=== PATIENT | male | born 1985 ===

== ENCOUNTER 2018-02-17 14:19 | Emergency (ER) | payer SELFPAY ==
[2018-02-17 14:31] VITALS: O2SAT 100
--- NOTE | 2018-02-17 15:25 | C.PDOC ---
History Of Present Illness 32 years old presents to ED for evaluation of 10/10 rectal pain. Patient states "It feels like I have a lump and I feel a lot of pressure and like something is going to pop." Patient describes pain is greater on the right than left. Patient states he was working out at the gym 4 days ago at the gym and felt the pain after he was squatting. Patient states he tried warm baths with epsom salts at least twice a day with no relief but has not tried other treatments. Denies medical problems, constipation, drug use or any other physical complaints. Patient states was seen for similar symptoms few years ago and was told they were hemorrhoid related. Patient also reports occasional drinking. PMD: * No PMD. Time Seen by Provider: 02/17/18 15:03 Chief Complaint (Nursing): GI Problem History Per: Patient History/Exam Limitations: no limitations Onset/Duration Of Symptoms: Days (4) Current Symptoms Are (Timing): Still Present Associated Symptoms: denies: Fever, Chills, Diarrhea, Constipation Alleviating Factors: None Recent travel outside of the [place]: No Past Medical History Reviewed: Historical Data, Nursing Documentation, Vital Signs Vital Signs: Last Vital Signs Temp 98.7 F 02/17/18 14:29 Pulse 87 02/17/18 14:29 Resp 16 02/17/18 14:29 BP 122/77 02/17/18 14:29 Pulse Ox 100 02/17/18 14:29 - Medical History PMH: No Chronic Diseases Surgical History: No Surg Hx Family History: States: Diabetes (Father) - Social History Hx Alcohol Use: Yes Hx Substance Use: No - Immunization History Hx Tetanus Toxoid Vaccination: No Hx Influenza Vaccination: No Hx Pneumococcal Vaccination: No Review Of Systems Constitutional: Negative for: Fever, Chills Gastrointestinal: Positive for: Rectal Pain. Negative for: Nausea, Vomiting, Diarrhea, Constipation Skin: Negative for: Rash Neurological: Negative for: Weakness, Numbness Physical Exam - Physical Exam Appears: Non-toxic, No Acute Distress Skin: Normal Color, Warm, Dry, No Rash Head: Atraumatic Eye(s): bilateral: Normal Inspection, EOMI Oral Mucosa: Moist Throat: Normal, No Erythema, No Exudate, No Drooling, No Mass Neck: Normal ROM, Supple Chest: Symmetrical, No Tenderness Cardiovascular: Rhythm Regular, No Murmur Respiratory: Normal Breath Sounds, No Rales, No Rhonchi, No Wheezing Gastrointestinal/Abdominal: Normal Exam, Bowel Sounds (Active ), Soft, No Tenderness, No Distention, No Guarding, No Rebound Rectal: Hemorrhoids (No External Hemorrhoids. Digital exam internal rectal at 9'oclock position shows positive soft mass palpated/ likely hemorrhoids. ) Extremity: Normal ROM Extremity: Bilateral: Atraumatic, Normal Color And Temperature, Normal ROM Pulses: Left Radial: Normal, Right Radial: Normal Neurological/Psych: Oriented x3, Normal Speech Gait: Steady ED Course And Treatment O2 Sat by Pulse Oximetry: 100 (RA) Pulse Ox Interpretation: Normal Medical Decision Making Medical Decision Making: Plan: * Hydrocortisone * Motrin Progress: Rectal Exam done with Heike Pisano) as a assistant spa manager. Patient instructed that he will go home with these medications for pain. Follow up instructions given and patient agrees to plan. Patient advised to return if symptoms worsen or persist. Patient is stable for discharge. Disposition Counseled Patient/Family Regarding: Diagnosis, Need For Followup, Rx Given - Disposition Referrals: Juan Giron MD [Staff Provider] - Disposition: HOME/ ROUTINE Disposition Time: 16:18 Condition: STABLE Additional Instructions: Mr. Wilson, thank you for letting us take care of you today. Return to the ER if your symptoms worsen. Take the medication listed below as prescribed. Do not do any weight lifting until your hemorrhoids have improved. Please call the GI physician--Dr. Giron--at the phone number listed below. Continue to do the Sitz Baths 3 times a day. Prescriptions: Hydrocortisone [Anusol-HC] 1 supp SD TID #30 sup Ibuprofen [Motrin Tab] 1 tab PO TID PRN #30 tab PRN Reason: Pain, Moderate (4-7) Instructions: Hemorrhoids Forms: [employer] (Djiboutian) Print Language: TUNISIAN - POA Present On Arrival: None - Clinical Impression Clinical Impression: Hemorrhoids - Scribe Statement The provider has reviewed the documentation as recorded by the [facility] All medical record entries made by the Bernardoibstefani were at my direction and personally dictated by me. I have reviewed the chart and agree that the record accurately reflects my personal performance of the history, physical exam, medical decision making, and the department course for this patient. I have also personally directed, reviewed, and agree with the discharge instructions and disposition.
[2018-02-17 16:42] VITALS: BP 113/72; PULSE 52; RESP 18; TEMP 98.5
== END 2018-02-17 16:42 | disposition home or self-care (01) ==
LOC: C.ER 14:19
DX: K64.9 Unspecified hemorrhoids (principal)

== ENCOUNTER 2018-02-19 01:58 | Inpatient (IN) | payer SELFPAY ==
[2018-02-19] MEDS ORDERED: Sodium Chloride 0.9% 1,000 ML IV ONE (02:27)
[2018-02-19 02:36] LABS: BASO % 0.3 % (0.0-2.0); EOS # 0.1 K/uL (0.0-0.7); EOS % 0.5 % (0.0-4.0); HEMOGLOBIN 12.6 g/dL (12.0-18.0); LYMPH # 0.9 K/uL (1.0-4.3); LYMPH % 5.7 % (20.0-40.0); MEAN CELL VOLUME 84.5 fL (80.0-94.0); MEAN CORPUSCULAR HEMOGLOBIN 28.6 pg (27.0-31.0); MEAN CORPUSCULAR HGB CONC 33.9 g/dL (33.0-37.0); MEAN PLATELET VOLUME 8.9 fL (7.2-11.7); MONO # 1.3 K/uL (0.0-0.8); MONO % 8.1 % (0.0-10.0); NEUT # 13.3 K/uL (1.8-7.0); NEUT % 85.4 % (50.0-75.0); NRBC % 0.1 % (0.0-2.0); PLATELET COUNT 189 K/uL (130-400); RED CELL DISTRIBUTION WIDTH 12.6 % (11.5-14.5); WHITE BLOOD COUNT 15.5 K/uL (4.8-10.8)
[2018-02-19] MEDS ORDERED: Morphine 4 MG/ML VIAL ONE ×2 (02:38→07:38)
[2018-02-19 02:48] LABS: ALB/GLOB RATIO 1.4 (1.0-2.1); ALBUMIN 4.2 g/dL (3.5-5.0); ALT/SGPT 79 U/L (21-72); AST/SGOT 67 U/L (17-59); BLOOD UREA NITROGEN 17 mg/dL (9-20); CALCIUM 8.8 mg/dl (8.6-10.4); GFR NON-AFRICAN AMERICAN > 60
--- NOTE | 2018-02-19 02:51 | C.PDOC ---
History Of Present Illness Patient presents to ED c/o severe rectal pain that started approx 5 days ago. He was seen in out ED on 02/17 and diagnosed with internal hemorrhoid, given anusol and motrin. He states the pain has worsened and he now feels a "bump" in the area. He denies fever, abdominal pain, vomiting, diarrhea, rectal bleeding, injuries. Time Seen by Provider: 02/19/18 02:11 Chief Complaint (Nursing): Medical Clearance History Per: Patient History/Exam Limitations: no limitations Onset/Duration Of Symptoms: Days (5) Current Symptoms Are (Timing): Still Present Severity: Severe Past Medical History Reviewed: Historical Data, Nursing Documentation, Vital Signs Vital Signs: Last Vital Signs Temp 98.7 F 02/19/18 02:05 Pulse 88 02/19/18 02:05 Resp 18 02/19/18 02:05 BP 119/74 02/19/18 02:05 Pulse Ox 98 02/19/18 02:05 - Medical History PMH: No Chronic Diseases Family History: States: Diabetes (Father) - Social History Hx Alcohol Use: Yes Hx Substance Use: No - Immunization History Hx Tetanus Toxoid Vaccination: No Hx Influenza Vaccination: No Hx Pneumococcal Vaccination: No Review Of Systems Constitutional: Negative for: Fever, Chills Cardiovascular: Negative for: Chest Pain, Palpitations Respiratory: Negative for: Cough, Shortness of Breath Gastrointestinal: Positive for: Rectal Pain. Negative for: Nausea, Vomiting, Abdominal Pain, Diarrhea, Melena Genitourinary: Negative for: Dysuria Skin: Negative for: Rash Physical Exam - Physical Exam Appears: Well, Non-toxic, In Acute Distress (in moderate pain) Skin: Normal Color, Warm, Dry Oral Mucosa: Moist Cardiovascular: Rhythm Regular Respiratory: Normal Breath Sounds, No Rales, No Rhonchi, No Wheezing Gastrointestinal/Abdominal: Normal Exam, Bowel Sounds, Soft, No Tenderness Rectal: Rectal Tone (normal ), No Blood Streaked Stool, No Hemorrhoids, Tenderness (and severe pain with digital exam), Other (at 9 O'clock, approx 3cm area of swelling that is exquisitely tender to palpation, no overlying erythema, no obvious hemorrhoids) Neurological/Psych: Oriented x3 ED Course And Treatment - Laboratory Results Result Diagrams: 02/19/18 02:34 02/19/18 02:34 ECG: Interpreted By Me, Viewed By Me (sinus bradycardia 57 bpm, normal axis, no acute ST/T wave changes) ECG Interpretation: No Acute Changes O2 Sat by Pulse Oximetry: 98 (RA) Pulse Ox Interpretation: Normal - CT Scan/US CT PELVIS Other Rad Studies (CT/US): Read By Radiologist, Radiology Report Reviewed CT/US Interpretation: Name:CARL MACDONALD Exam Date:Feb 19, 2018 3:25:19 AM EST. Modality Type:CT\\SR. Description:CT - PELVIS. Gender:M Laterality:Not applicable. :87 Referring Physician:MALACHI BLANC MD. CT scan of the pelvis with contrast. Indication: Rectal pain. Technique: Axial CT scan images with intravenous contrast. Reformatted coronal and sagittal images. Findings: 4.3x2.7 cm right perianal abscess formation. Prominent surrounding inflammatory fat stranding suggestive of cellulitis. No mass lesion is noted. Impression: Right perianal intersphincteric abscess formation. . Electronically signed on Feb 19, 2018 3:57:37 AM EST by: Lane Phoenix M.D., Certified by ABR, MSK, Neuroradiology. Progress Note: Blood work and CT scan of pelvis with IV contrast ordered and reviewed. Patient given IV NS bolus, IV morphine, IV Ciprofloxacin and IV Flagyl. 4:05am- Surgeon cost control supervisor paged. 4:35am- Surgeon cost control supervisor paged again. 4:45am- Spoke with surgery resident, will come down and evaluate patient. Disposition - Disposition
[2018-02-19] MEDS ORDERED: Iodixanol 320 MG/ML 100 ML BOTTLE IV ONE (03:00)
[2018-02-19 03:50] LABS: BANDS 1 % (0-2); BASOPHIL 1 % (0-2); LYMPHOCYTE 4 % (20-40); MONOCYTE 6 % (0-10); NEUTROPHIL 86 % (50-75); PLATELET ESTIMATE NORMAL (NORMAL); REACTIVE LYMPHOCYTES 2 % (0-0); TOTAL CELLS COUNTED 100
[2018-02-19 03:51] LABS: LARGE PLATELETS PRESENT
[2018-02-19] MEDS ORDERED: metroNIDAZOLE IV 500 mg/100 ml 500 MG/100 ML BAG IV STA (03:59)
[2018-02-19] MEDS ORDERED: Ciprofloxacin 400mg/200ml D5W 400 MG/200 ML BAG IV STA (03:59)
[2018-02-19] MEDS ORDERED: metroNIDAZOLE IV 500 mg/100 ml 500 MG/100 ML BAG ONE (04:05)
[2018-02-19] MEDS ORDERED: Ciprofloxacin 400mg/200ml D5W 400 MG/200 ML BAG IVPB ONE (04:06)
--- NOTE | 2018-02-19 05:37 | CP.PCM.HP ---
<Carly Solis - Last Filed: 02/19/18 05:20> History of Present Illness - History of Present Illness History of Present Illness: Surgery H&P: Dr. Ferrer Pt is a 32M with no PMHx or PSHx who presents to [facility] ER with complaints of rectal pain. Pt states he came to the ER on Monday for similar pain and was told he had an internal hemorrhoid for which he was given cream/sitz baths. However, the pain did not improve and pt states he now feels a lump on his Right buttock. He denies having anything similar in the past and denies any discharge from the area. In the ER, pt had a CT pelvis which shows 4.3 x 2.7 R perianal abscess. Surgery called to evaluate. Pt is currently resting on his stomach in the ER because of the pain. He states he has been unable to sit on his R side. Pt states he has been having bowel movements and denies any bleeding per rectum. He denies any fevers/chills, nausea/vomiting, chest pain or SOB. Pt denies rectal intercourse. PMHx: denies PSHx: denies SocialHx: denies tobacco/drug use, social EtOH ALL: NKDA Present on Admission - Present on Admission Any Indicators Present on Admission: No Review of Systems - Review of Systems All systems: reviewed and no additional remarkable complaints except (as per HPI) Past Patient History - Infectious Disease Hx of Infectious Diseases: None - Past Social History Smoking Status: Never Smoked Alcohol: Social Drugs: Denies - PSYCHIATRIC Hx Substance Use: No - SURGICAL HISTORY Hx Surgeries: No - ANESTHESIA Hx Anesthesia: No Meds Allergies/Adverse Reactions: Allergies Allergy/AdvReac Type Severity Reaction Status Date / Time No Known Allergies Allergy Verified 02/19/18 02:04 Physical Exam - Constitutional Appears: Well, No Acute Distress - Head Exam Head Exam: ATRAUMATIC, NORMOCEPHALIC - Eye Exam Eye Exam: Normal appearance - ENT Exam ENT Exam: Mucous Membranes Moist - Respiratory Exam Respiratory Exam: NORMAL BREATHING PATTERN - Cardiovascular Exam Cardiovascular Exam: RRR - GI/Abdominal Exam GI & Abdominal Exam: Soft. absent: Distended, Tenderness - Rectal Exam Additional comments: 4x3cm fluctuant mass noted on R buttock at 9'0 clock in lithotomy position, transrectal fullness also appreciated however, pt very tender to palpation and difficult to complete exam. No internal/external hemorrhoids appreciated - Neurological Exam Neurological exam: Alert, Oriented x3 - Skin Skin Exam: Dry, Warm Results - Vital Signs Recent Vital Signs: Last Vital Signs Temp 98.6 F 02/19/18 05:08 Pulse 64 02/19/18 05:08 Resp 18 02/19/18 05:08 BP 142/91 H 02/19/18 05:08 Pulse Ox 100 02/19/18 05:08 - Labs Result Diagrams: 02/19/18 02:34 02/19/18 02:34 Labs: Laboratory Results - last 24 hr 02/19/18 02/19/18 02:34 02:34 WBC 15.5 H RBC 4.40 Hgb 12.6 Hct 37.2 MCV 84.5 MCH 28.6 MCHC 33.9 RDW 12.6 Plt Count 189 MPV 8.9 Neut % (Auto) 85.4 H Lymph % (Auto) 5.7 L [place] % (Auto) 8.1 Eos % (Auto) 0.5 Baso % (Auto) 0.3 Neut # (Auto) 13.3 H Lymph # (Auto) 0.9 L [place] # (Auto) 1.3 H Eos # (Auto) 0.1 Baso # (Auto) 0.0 Neutrophils % (Manual) 86 H Band Neutrophils % 1 Lymphocytes % (Manual) 4 L Reactive Lymphs % 2 H Monocytes % (Manual) 6 Basophils % (Manual) 1 Platelet Estimate Normal Large Platelets Present Sodium 139 Potassium 4.3 Chloride 102 Carbon Dioxide 28 Anion Gap 13 BUN 17 Creatinine 1.2 Est GFR ( Amer) > 60 Est GFR (Non-Af Amer) > 60 Random Glucose 124 H Calcium 8.8 Total Bilirubin 0.9 AST 67 H ALT 79 H Alkaline Phosphatase 96 Total Protein 7.2 Albumin 4.2 Globulin 3.0 Albumin/Globulin Ratio 1.4 - Imaging and Cardiology CT scan - abdomen Status: Image reviewed by me, Report reviewed by me Assessment & Plan - Assessment and Plan (Free Text) Assessment: 32M with R sided isaiah-rectal abscess Plan: - OR for exam under anesthesia and I&D of isaiah-rectal abscess - IV ABX - NPO, IVF - d/w Dr. Ferrer <Radames Ferrer - Last Filed: 02/19/18 06:55> Results - Vital Signs Recent Vital Signs: Last Vital Signs Temp 98.6 F 02/19/18 05:08 Pulse 64 02/19/18 05:08 Resp 18 02/19/18 05:08 BP 142/91 H 02/19/18 05:08 Pulse Ox 98 02/19/18 05:54 - Labs Result Diagrams: 02/19/18 02:34 02/19/18 02:34 Labs: Laboratory Results - last 24 hr 02/19/18 02/19/18 02/19/18 02:34 02:34 05:41 WBC 15.5 H RBC 4.40 Hgb 12.6 Hct 37.2 MCV 84.5 MCH 28.6 MCHC 33.9 RDW 12.6 Plt Count 189 MPV 8.9 Neut % (Auto) 85.4 H Lymph % (Auto) 5.7 L [place] % (Auto) 8.1 Eos % (Auto) 0.5 Baso % (Auto) 0.3 Neut # (Auto) 13.3 H Lymph # (Auto) 0.9 L [place] # (Auto) 1.3 H Eos # (Auto) 0.1 Baso # (Auto) 0.0 Neutrophils % (Manual) 86 H Band Neutrophils % 1 Lymphocytes % (Manual) 4 L Reactive Lymphs % 2 H Monocytes % (Manual) 6 Basophils % (Manual) 1 Platelet Estimate Normal Large Platelets Present PT 14.9 H INR 1.4 APTT 30 Sodium 139 Potassium 4.3 Chloride 102 Carbon Dioxide 28 Anion Gap 13 BUN 17 Creatinine 1.2 Est GFR ( Amer) > 60 Est GFR (Non-Af Amer) > 60 Random Glucose 124 H Calcium 8.8 Total Bilirubin 0.9 AST 67 H ALT 79 H Alkaline Phosphatase 96 Total Protein 7.2 Albumin 4.2 Globulin 3.0 Albumin/Globulin Ratio 1.4 Blood Type Antibody Screen 02/19/18 05:55 WBC RBC Hgb Hct MCV MCH MCHC RDW Plt Count MPV Neut % (Auto) Lymph % (Auto) [place] % (Auto) Eos % (Auto) Baso % (Auto) Neut # (Auto) Lymph # (Auto) [place] # (Auto) Eos # (Auto) Baso # (Auto) Neutrophils % (Manual) Band Neutrophils % Lymphocytes % (Manual) Reactive Lymphs % Monocytes % (Manual) Basophils % (Manual) Platelet Estimate Large Platelets PT INR APTT Sodium Potassium Chloride Carbon Dioxide Anion Gap BUN Creatinine Est GFR ( Amer) Est GFR (Non-Af Amer) Random Glucose Calcium Total Bilirubin AST ALT Alkaline Phosphatase Total Protein Albumin Globulin Albumin/Globulin Ratio Blood Type A POSITIVE Antibody Screen Negative Assessment & Plan - Assessment and Plan (Free Text) Plan: I personally saw and examined the patient independent of resident staff and agree with above assessment and plan. Personally reviewed CT imaging and report. 32 male isaiah-rectal abscess with elevated WBC. To OR for examination under anesthesia, incision and drainage, possible seton placement. Risks and benefits discussed with patient at bedside. Consent signed.
[2018-02-19] MEDS ORDERED: Morphine 4 MG/ML VIAL IVP PRN (05:49)
[2018-02-19 05:52] LABS: INR 1.4; PROTHROMBIN TIME 14.9 SECONDS (9.7-12.2)
[2018-02-19] MEDS ORDERED: Piperacillin/Tazobact 3.375 GM in Sodium Chloride 100 ML IVPB SCH (06:00)
[2018-02-19] MEDS ORDERED: Lactated Ringer's 1,000 ML IV SCH (06:00)
[2018-02-19] MEDS ORDERED: Propofol 10 mg/ml Inj (20 ML) ONE (06:45)
[2018-02-19] MEDS ORDERED: Midazolam 2 MG/2 ML VIAL ONE (06:45)
[2018-02-19] MEDS ORDERED: Bupivacaine 0.25% 20 ML INJ IJ ONE (07:27)
[2018-02-19] MEDS ORDERED: Lidocaine/Epinephrine 1% 1:100000 10 ML IJ ONE (07:27)
[2018-02-19] MEDS ORDERED: ePHEDrine 50 mg/ml Inj ONE (07:41)
[2018-02-19] MEDS ORDERED: Lactated Ringer's 1,000 ML IV ONE (08:05)
--- NOTE | 2018-02-19 08:15 | PCM.SURG1 ---
Surgeon's Initial Post Op Note - Surgeon's Notes Surgeon: Dr. Radames Ferrer Life Enrichment Director: Kasey Soliman, PGY2 Type of Anesthesia: General Endo Pre-Operative Diagnosis: isaiah-rectal abscess Operative Findings: intersphincteric abscess of the rectum Post-Operative Diagnosis: same Operation Performed: examination under anesthesia, incision and drainage of perirectal abscess Specimen/Specimens Removed: culture, isaiah-rectal tissue Estimated Blood Loss: EBL {In ML}: 10 Date of Surgery/Procedure: 02/19/18 Time of Surgery/Procedure: 07:00
[2018-02-19] MEDS ORDERED: HYDROmorphone 0.5 mg/0.5 ml ISec IVP PRN (08:30)
--- NOTE | 2018-02-19 10:19 | CT ---
Date of service: 02/19/2018 CT abdomen with IV contrast Indication: rectal pain, r/o right sided rectal abscess Technique: Contiguous axial images of the abdomen. Coronal and Sagittal reformats generated and reviewed. Contrast: 100 mL Visipaque [address] exam was performed using 1 or more of the following dose reduction techniques: Automated exposure control, adjustment of the MAA and/or kV according to patient size, and/or use of iterative reconstruction technique. Radiation dose: Total exam DLP = 1299.25 MGy-cm. Comparison: None available Findings: The included bowel loops appear within normal limits of caliber without evidence of intestinal obstruction. There is no definite free air. Perirectal inflammatory stranding. Sub cm perirectal lymph nodes, nonspecific. The prostate gland measures approximately 3.0 x 3.5 cm. The urinary bladder appears unremarkable. Small fat containing bilateral inguinal hernias. 1.8 x 2.7 x 3.2 cm (transverse by AP by cc dimensions) right perianal abscess. Adjacent inflammatory stranding appears consistent with cellulitis. No acute osseous abnormality is detected. Impression: 1.8 x 2.7 x 3.2 cm right perianal abscess with adjacent inflammatory stranding which appears consistent with cellulitis. Perirectal inflammatory stranding is also noted with sub cm perirectal lymph nodes. Preliminary impression was provided by [employer].
[2018-02-19] MEDS: Docusate-Senna 50 mg-8.6 mg Tab PO SCH ×2 (11:09→17:52)
[2018-02-19] MEDS: metroNIDAZOLE IV 500 mg/100 ml 500 MG/100 ML BAG IVPB SCH ×2 (11:41→21:07)
[2018-02-19] MEDS: Ciprofloxacin 400mg/200ml D5W 400 MG/200 ML BAG IVPB SCH (14:47)
[2018-02-19 15:38] VITALS: RESP 20
[2018-02-20] MEDS: Ciprofloxacin 400mg/200ml D5W 400 MG/200 ML BAG IVPB SCH (02:35)
[2018-02-20] MEDS: metroNIDAZOLE IV 500 mg/100 ml 500 MG/100 ML BAG IVPB SCH ×2 (04:00→11:44)
[2018-02-20] MEDS ORDERED: Oxycodone/Acetaminophen 5/325 mg Tab PO PRN (07:41)
[2018-02-20 07:48] LABS: BASO % 0.2 % (0.0-2.0); EOS % 0.5 % (0.0-4.0); HEMOGLOBIN 12.3 g/dL (12.0-18.0); LYMPH # 1.5 K/uL (1.0-4.3); LYMPH % 13.8 % (20.0-40.0); MEAN CELL VOLUME 84.4 fL (80.0-94.0); MEAN CORPUSCULAR HEMOGLOBIN 28.7 pg (27.0-31.0); MEAN PLATELET VOLUME 8.7 fL (7.2-11.7); MONO % 9.5 % (0.0-10.0); NEUT # 8.1 K/uL (1.8-7.0); RBC 4.3 Mil/uL (4.40-5.90); RED CELL DISTRIBUTION WIDTH 12.6 % (11.5-14.5); WHITE BLOOD COUNT 10.6 K/uL (4.8-10.8)
[2018-02-20 08:18] LABS: BLOOD UREA NITROGEN 10 mg/dL (9-20); CALCIUM 8.3 mg/dl (8.6-10.4); GFR NON-AFRICAN AMERICAN > 60
[2018-02-20] MEDS: Enoxaparin 40 mg Syringe SC SCH (10:30)
[2018-02-20] MEDS: Docusate-Senna 50 mg-8.6 mg Tab PO SCH ×2 (10:30→17:54)
--- NOTE | 2018-02-20 11:56 | CP.PCM.PN ---
Subjective - Date & Time of Evaluation Date of Evaluation: 02/20/18 Time of Evaluation: 06:30 - Subjective Subjective: General surgery progress note for Dr. Ferrer Pt seen and examined at bedside this AM. No acute events overnight. Patient reports pain but it is currently well managed on current regimen. Packing changed performed at bedside with no complications. Objective - Vital Signs/Intake and Output Vital Signs (last 24 hours): Temp Pulse Resp BP Pulse Ox 98.2 F 72 20 139/72 95 02/20/18 07:15 02/20/18 07:15 02/20/18 07:15 02/20/18 07:15 02/20/18 07:15 Intake and Output: 02/20/18 02/20/18 06:59 18:59 Output Total 650 Balance -650 - Medications Medications: Current Medications Acetaminophen (Tylenol 325mg Tab) 650 mg PO Q6 PRN PRN Reason: Fever >100.4 F Last Admin: 02/20/18 11:45 Dose: 650 mg Ciprofloxacin (Cipro) 750 mg PO Q12H RYANN; Protocol Enoxaparin Sodium (Lovenox) 40 mg SC DAILY [facility] Last Admin: 02/20/18 10:30 Dose: 40 mg Hydromorphone HCl (Dilaudid) 0.5 mg IVP Q15M PRN PRN Reason: Pain, severe (8-10) Last Admin: 02/19/18 08:58 Dose: 0.5 mg Magnesium Sulfate/Dextrose (Magnesium Sulfate 1 Gm/100 Ml D5w) 1 gm in 100 mls @ 300 mls/hr IVPB Q30M RYANN Stop: 02/20/18 12:49 Influenza Virus Vaccine (Fluzone Quad [id number]) 60 mcg IM .ONCE ONE Stop: 02/21/18 10:01 Ketorolac Tromethamine (Toradol) 30 mg IVP Q6H PRN PRN Reason: Pain, moderate (4-7) Last Admin: 02/20/18 07:17 Dose: 30 mg Ketorolac Tromethamine (Toradol) 10 mg PO Q6 PRN PRN Reason: Pain, moderate (4-7) Stop: 02/23/18 11:48 Metronidazole (Flagyl) 500 mg PO Q6H RYANN; Protocol Ondansetron HCl (Zofran Inj) 4 mg IVP DAILY@ONCE PRN PRN Reason: Nausea/Vomiting Oxycodone/Acetaminophen (Percocet 5/325 Mg Tab) 1 tab PO Q4H PRN PRN Reason: Pain, severe (8-10) Stop: 02/23/18 07:42 Senna/Docusate Sodium (Senokot S 50 Mg-8.6 Mg) 2 tab PO BID RYANN Last Admin: 02/20/18 10:30 Dose: 2 tab - Labs Labs: 02/20/18 07:41 02/20/18 07:41 PT 14.9 SECONDS (9.7-12.2) H 02/19/18 05:41 INR 1.4 02/19/18 05:41 APTT 30 SECONDS (21-34) 02/19/18 05:41 - Constitutional Appears: Well, Non-toxic, No Acute Distress - Head Exam Head Exam: ATRAUMATIC, NORMOCEPHALIC - Eye Exam Eye Exam: Normal appearance. absent: Conjunctival injection, Scleral icterus - ENT Exam ENT Exam: Mucous Membranes Moist, Normal Oropharynx - Respiratory Exam Respiratory Exam: NORMAL BREATHING PATTERN. absent: Accessory Muscle Use, Respiratory Distress - Cardiovascular Exam Cardiovascular Exam: RRR - GI/Abdominal Exam GI & Abdominal Exam: Soft. absent: Distended - Rectal Exam Additional comments: incision in right lateral perirectum with gauze packing with sero-sanguinous saturation, minimal surrounding induration, mild erythema, no active bleeding or purulent drainage - Extremities Exam Extremities Exam: absent: Calf Tenderness, Pedal Edema, Tenderness - Neurological Exam Neurological Exam: Alert, Awake, Oriented x3 - Psychiatric Exam Psychiatric exam: Normal Affect, Normal Mood - Skin Skin Exam: Dry, Normal Color, Warm Assessment and Plan - Assessment and Plan (Free Text) Assessment: 32M POD#1 s/p perirectal abscess drainage Plan: BID wet-to-dry packing changes PO antibiotics PRN pain medication--avoid narcotics as possible Continue scheduled stool softeners Encourage ambulation F/U cultures and pathology DVT ppx Patient will need assistance and education for daily BID wet-to-dry packing changes prior to DC. Will attempt to educate family to assist. Discussed with Dr. Nabil Soliman, PGY2
[2018-02-20] MEDS: Magnesium Sulfate 1 gm in D5W 1 GM/100 ML BAG IVPB SCH ×2 (12:28→13:25)
--- NOTE | 2018-02-20 17:14 | CARD ---
APPROVED REPORT Date of service: 02/19/2018 EKG Measurement Heart [id number] <Conclusion> Sinus bradycardia Otherwise normal ECG
[2018-02-21 07:29] LABS: BASO % 0.3 % (0.0-2.0); EOS # 0.2 K/uL (0.0-0.7); EOS % 2.5 % (0.0-4.0); HEMOGLOBIN 12.5 g/dL (12.0-18.0); LYMPH # 1.4 K/uL (1.0-4.3); LYMPH % 19.4 % (20.0-40.0); MEAN CELL VOLUME 84.1 fL (80.0-94.0); MEAN CORPUSCULAR HEMOGLOBIN 28.8 pg (27.0-31.0); MEAN CORPUSCULAR HGB CONC 34.3 g/dL (33.0-37.0); MEAN PLATELET VOLUME 8.8 fL (7.2-11.7); MONO # 0.8 K/uL (0.0-0.8); MONO % 10.4 % (0.0-10.0); NEUT % 67.4 % (50.0-75.0); NRBC % 0.1 % (0.0-2.0); RBC 4.36 Mil/uL (4.40-5.90); RED CELL DISTRIBUTION WIDTH 12.8 % (11.5-14.5); WHITE BLOOD COUNT 7.4 K/uL (4.8-10.8)
[2018-02-21 07:42] LABS: BLOOD UREA NITROGEN 12 mg/dL (9-20); CALCIUM 8.9 mg/dl (8.6-10.4); GFR NON-AFRICAN AMERICAN > 60
[2018-02-21 09:16] VITALS: BP 109/63; PULSE 72; TEMP 97.7; O2SAT 96
--- NOTE | 2018-02-21 09:24 | PCM.OP ---
Operative Report - Operative Report Date of Surgery/Procedure: 02/19/18 Time of Surgery/Procedure: 07:00 Surgeon: Radames Ferrer MD Shoe Sticks Repairer: Kasey Soliman DO PGY 2 resident Anesthesia/Sedation: General endotracheal; 1% lidocaine with epinephrine + 25% marcarine local mixture 30cc Pre-Operative Diagnosis: Calista-rectal abscess. Obesity. BMI 32 Post-Operative Diagnosis: Calista-rectal abscess. Obesity. BMI 32 Indication for Surgery: The patient is a 32 year old male who presented to ED with several days perirectal pain and fevers. CT evidence of perirectal abscess, leukocytosis and inability to perform appropriate rectal exam due to significant pain. Details of HPI as documented in patients chart. All potential risks, benefits, and complications of Examination under anesthesia, Incision and drainage of perirectal abscess, possible seton placement, were discussed with the patient, including but not limited to, bleeding, infection, urinary retention, incontinence, need for further procedures, and informed consent was obtained prior to the operation. Operative Findings: Transphincteric calista-rectal abscess without evidence of rectal connection or external fistula tract. 20cc of purulent fluid drained. Soft tissue inflammation. No further perineal findings. Procedure/Operation Description: PROCEDURE PERFORMED: Perineal Examination under anesthesia,. Incision and drainage (I&D) of perirectal abscess with pulse lavage. DETAILS OF OPERATION: Patient was taken to operating room and placed supine on the operating room table. Arms placed in neutral position on arms boards. SCD boots were placed for DVT prophylaxis. Following successful general endotracheal anesthesia, laguna catheter inserted to decompress urinary bladder, the patients legs were placed on padded stirrup foot rests, placed in lithotomy position, taking care to pad pressure points and place in neutral position avoiding any undo stretching of the joints. Upper body warmer placed. The perineum was prepped and draped in sterile fashion. A safety strap was then loosely placed across Lower abdomen. Patient receiving ciprofloxacin and flagyl IV antibiotics started in ED. A time out was performed prior to incision. The patients legs where raised in lithotomy position to access the abscess area, which was in the right gluteal side at the 9 O'cloack position with obvious fullness but not external opening or drainage. A digital rectal exam was performed and grossly normal without evidence of deeper involvement. Gloves were changed and the abscess was incised with a cruciate incision. The skin edges of the cruciate incision and all necrotic tissue was sharply removed. Skin sent off to pathology The cavity was digitally explored and purulent fluid evacuated on the right side. Cavity was found to cross over posterior to the left calista-rectal space, No communication to any deeper structures or to the colorectal area. Small septae were released with hemostat. The cavity was irrigated with pulsed saline lavage and then was packed with packing gauze and dressed. 30cc of local anesthesia was injected around the incision and perineum for adequate pain control. Estimated blood loss was minimal. The patient tolerated the procedure well and was sent for recovery in good condition. I was present for the entirety of the operation. Sponge needle, and instrument counts were correct. Estimated Blood Loss: 15mL Complications: none Specimen: perineal skin x2 Discharge & Condition: above
[2018-02-21] MEDS: Enoxaparin 40 mg Syringe SC SCH (09:57)
[2018-02-21] MEDS: Docusate-Senna 50 mg-8.6 mg Tab PO SCH (09:58)
[2018-02-21] MEDS ORDERED: Influenza Vaccine 60 MCG/0.5 ML SYR (3 yr & up) IM ONE (10:00)
--- NOTE | 2018-02-21 12:47 | CP.PCM.DIS ---
Provider - Provider Date of Admission: 02/19/18 05:20 Attending physician: Radames Ferrer MD Time Spent in preparation of Discharge (in minutes): 45 Diagnosis - Discharge Diagnosis (1) Anorectal abscess Status: Acute Priority: High (2) Post-operative pain Status: Acute Priority: High Hospital Course - Lab Results Lab Results: Micro Results 02/19/18 09:04 Other: Please Indicate Gram Stain - Final 02/19/18 09:04 Other: Please Indicate Wound Culture - Final Escherichia Coli Most Recent Lab Values WBC 7.4 K/uL (4.8-10.8) 02/21/18 07:18 RBC 4.36 Mil/uL (4.40-5.90) L 02/21/18 07:18 Hgb 12.5 g/dL (12.0-18.0) 02/21/18 07:18 Hct 36.6 % (35.0-51.0) 02/21/18 07:18 MCV 84.1 fL (80.0-94.0) 02/21/18 07:18 MCH 28.8 pg (27.0-31.0) 02/21/18 07:18 MCHC 34.3 g/dL (33.0-37.0) 02/21/18 07:18 RDW 12.8 % (11.5-14.5) 02/21/18 07:18 Plt Count 210 K/uL (130-400) 02/21/18 07:18 MPV 8.8 fL (7.2-11.7) 02/21/18 07:18 Neut % (Auto) 67.4 % (50.0-75.0) 02/21/18 07:18 Lymph % (Auto) 19.4 % (20.0-40.0) L 02/21/18 07:18 [place] % (Auto) 10.4 % (0.0-10.0) H 02/21/18 07:18 Eos % (Auto) 2.5 % (0.0-4.0) 02/21/18 07:18 Baso % (Auto) 0.3 % (0.0-2.0) 02/21/18 07:18 Neut # (Auto) 5.0 K/uL (1.8-7.0) 02/21/18 07:18 Lymph # (Auto) 1.4 K/uL (1.0-4.3) 02/21/18 07:18 [place] # (Auto) 0.8 K/uL (0.0-0.8) 02/21/18 07:18 Eos # (Auto) 0.2 K/uL (0.0-0.7) 02/21/18 07:18 Baso # (Auto) 0.0 K/uL (0.0-0.2) 02/21/18 07:18 Neutrophils % (Manual) 86 % (50-75) H 02/19/18 02:34 Band Neutrophils % 1 % (0-2) 02/19/18 02:34 Lymphocytes % (Manual) 4 % (20-40) L 02/19/18 02:34 Reactive Lymphs % 2 % (0-0) H 02/19/18 02:34 Monocytes % (Manual) 6 % (0-10) 02/19/18 02:34 Basophils % (Manual) 1 % (0-2) 02/19/18 02:34 Platelet Estimate Normal (NORMAL) 02/19/18 02:34 Large Platelets Present 02/19/18 02:34 PT 14.9 SECONDS (9.7-12.2) H 02/19/18 05:41 INR 1.4 02/19/18 05:41 APTT 30 SECONDS (21-34) 02/19/18 05:41 Sodium 138 mmol/L (132-148) 02/21/18 07:18 Potassium 4.5 mmol/L (3.6-5.2) 02/21/18 07:18 Chloride 103 mmol/L (98-107) 02/21/18 07:18 Carbon Dioxide 27 mmol/L (22-30) 02/21/18 07:18 Anion Gap 12 (10-20) 02/21/18 07:18 BUN 12 mg/dL (9-20) 02/21/18 07:18 Creatinine 1.2 mg/dL (0.8-1.5) 02/21/18 07:18 Est GFR ( Amer) > 60 02/21/18 07:18 Est GFR (Non-Af Amer) > 60 02/21/18 07:18 Random Glucose 111 mg/dL (75-110) H 11/07/18 07:18 Calcium 8.9 mg/dl (8.6-10.4) 02/21/18 07:18 Phosphorus 3.7 mg/dL (2.5-4.5) 02/21/18 07:18 Magnesium 2.0 mg/dL (1.6-2.3) 02/21/18 07:18 Total Bilirubin 0.9 mg/dL (0.2-1.3) 02/19/18 02:34 AST 67 U/L (17-59) H 02/19/18 02:34 ALT 79 U/L (21-72) H 02/19/18 02:34 Alkaline Phosphatase 96 U/L (38-126) 02/19/18 02:34 Total Protein 7.2 g/dL (6.3-8.3) 02/19/18 02:34 Albumin 4.2 g/dL (3.5-5.0) 02/19/18 02:34 Globulin 3.0 gm/dL (2.2-3.9) 02/19/18 02:34 Albumin/Globulin Ratio 1.4 (1.0-2.1) 02/19/18 02:34 Blood Type A POSITIVE 02/19/18 05:55 Antibody Screen Negative 02/19/18 05:55 - Hospital Course Hospital Course: Pt is a 32M who presented to the ED for severe perirectal pain, and was discovered to have a large perirectal abscess on exam. Patient had a intersphincteric abscess seen on CT scan. Patient was started on IV antibiotics and went to OR that day for drainage of perirectal abscess, and debridement of necrotic tissue. Patient tolerated the procedure well, and recovered well with BID wet-to-dry dressing changes in the wound. Patient's leukocytosis resolved on POD#1, and was started on PO antibiotics and PO pain medication. Patient's WBC continued to be wnl on POD#2, he was ambulating, tolerating dressing changes, and PO tylenol for pain medication. Patient's family were educated on dressing changes and he and his family were comfortable with home dressing care. Patient was discharged to home with PO antibiotics, stool softeners, and tylenol and instructions to continue BID wet-to-dry dressing changes, follow up with Dr. Ferrer in the [facility] in 3-4 weeks. For full hospital course, see chart Discharge Exam - Head Exam Head Exam: ATRAUMATIC, NORMOCEPHALIC - Eye Exam Eye Exam: Normal appearance. absent: Conjunctival injection, Scleral icterus - ENT Exam ENT Exam: Mucous Membranes Moist, Normal Oropharynx - Respiratory Exam Respiratory Exam: NORMAL BREATHING PATTERN, UNREMARKABLE. absent: Accessory Muscle Use - Cardiovascular Exam Cardiovascular Exam: RRR - GI/Abdominal Exam GI & Abdominal Exam: Soft. absent: Distended, Tenderness - Rectal Exam Additional comments: incision open no active drainage, no bleeding, no surrounding erythema or indur ation, moderate tenderness to palpation - Neurological Exam Neurological exam: Alert, Oriented x3 - Psychiatric Exam Psychiatric exam: Normal Affect, Normal Mood - Skin Skin Exam: Dry, Normal Color, Warm Discharge Plan - Discharge Medications Prescriptions: Acetaminophen [Tylenol 325mg tab] 650 mg PO Q6 PRN #1 tab PRN Reason: Pain, Moderate (4-7) Ciprofloxacin [Cipro] 750 mg PO Q12 #10 tab Docusate Sodium/Sennosides A [Senokot S 50 MG-8.6 MG] 1 tab PO BID #28 tab metroNIDAZOLE [Flagyl] 500 mg PO Q6H #25 tab - Follow Up Plan Condition: GOOD Disposition: HOME/ ROUTINE Instructions: Ciprofloxacin (Systemic), Metronidazole (Systemic), Anal Abscess and Fistula (DC) Additional Instructions: Remove packing and re-insert with wet gauze twice a day as instructed Call Dr. Ferrer's clinic--[facility]--for follow up with him in 3-4 weeks Take all antibiotics as instructed, do not drink alcohol while taking antibiotics Take tylenol for pain as needed Cover packing with clean gauze with tape to keep clean during bowel movements. Replace as needed when it gets dirty Take stool softeners as needed Call Dr. Ferrer's office or come to ER for fever >100.4, severe pain, or any other concerning symptoms Referrals: Radames Ferrer MD [Staff Provider] - Clinical Quality Measures - CQM - Stroke Antithrombotic Prescribed: Yes
== END 2018-02-21 15:00 | disposition home or self-care (01) | DRG 346 ==
LOC: C.ER 01:58 → SUPCPDRO 01:58 → C.5S 05:20
PROVIDERS: ADMIT Surgery; ATTEND Surgery
PROC: 0HB9XZZ Excision of Perineum Skin, External Approach (ICD-10-PCS; 2018-02-19)
PROC: 0D9P0ZZ Drainage of Rectum, Open Approach (ICD-10-PCS; principal; 2018-02-19 06:00)
DX: K61.2 Anorectal abscess (principal); K61.4 Intrasphincteric abscess; K64.8 Other hemorrhoids; Z83.3 Family history of diabetes mellitus; D72.829 Elevated white blood cell count, unspecified; E66.9 Obesity, unspecified; Z68.32 Body mass index [BMI] 32.0-32.9, adult